=== PATIENT | male | born 1980 | race Hispanic/Latino ===

== ENCOUNTER → 2020-02-24 | Outpatient (CLI) | payer OTHER | END | disposition home or self-care (01) | LOC: SHCH 13:58 | PROVIDERS: ATTEND Internal Medicine Cardiovascular Disease | DX: R94.31 Abnormal electrocardiogram [ECG] [EKG] (principal); R07.9 Chest pain, unspecified | CPT/HCPCS: 93306; 93356 ==

== ENCOUNTER → 2020-02-29 | Outpatient (CLI) | payer OTHER ==
[~2020-02-29] MED LIST: REGADENOSON 0.4 MG/5 ML PF SYG IVP SCH
== END | disposition home or self-care (01) ==
LOC: SHCH 07:40 → EDUNIT# 08:20
PROVIDERS: ATTEND Internal Medicine Cardiovascular Disease
DX: R07.9 Chest pain, unspecified (principal); R51.9 Headache, unspecified; R06.00 Dyspnea, unspecified
CPT/HCPCS: 78452; 93017; 96374; A9500 ×2; J2785

== ENCOUNTER → 2020-06-21 | Outpatient (CLI) | payer SELFPAY | END | disposition home or self-care (01) | LOC: RAH 10:00 | PROVIDERS: ATTEND Internal Medicine Cardiovascular Disease | DX: Z13.6 Encounter for screening for cardiovascular disorders (principal) | CPT/HCPCS: 75571 ==